=== PATIENT | female | born 1985 | race Caucasian/White ===

== ENCOUNTER → 2020-10-03 | Outpatient (CLI) | payer OTHER ==
[~2020-10-03] MED LIST: IBUPROFEN800 MG PO; NORCO 7.5-3251 EACH PO
== END ==
LOC: KOH-I 08:00
DX: R10.31 Right lower quadrant pain (principal); D25.9 Leiomyoma of uterus, unspecified
CPT/HCPCS: 76700; 76856

== ENCOUNTER → 2021-04-17 | Outpatient (CLI) | payer OTHER | LOC: KOH-I 14:57 | DX: R59.0 Localized enlarged lymph nodes (principal) | CPT/HCPCS: 76536 ==